=== PATIENT | female | born 1975 | race Caucasian/White ===

== ENCOUNTER 2017-04-30 17:55 | Emergency (ER) | payer BC ==
[2017-04-30 18:05] VITALS: BP 158/89; PULSE 112; RESP 16; TEMP 98.1; O2SAT 94
[2017-04-30] MEDS ORDERED: TDAP ADULT 0.5 ML INJ (BOOSTRIX) IM ONE (18:25)
[2017-04-30] MEDS ORDERED: LET GEL TOPICAL 1 EA SYR TP ONE (18:25)
--- NOTE | 2017-04-30 18:25 | EDPHY ---
H & P Stated Complaint: head lac Time Seen by Provider: 04/30/17 18:24 HPI/ROS: HPI: This is a 41-year-old female presents with Chief Complaint: Head laceration Location: Right occipital Quality: Laceration Duration: Prior to arrival Signs and Symptoms: No LOC, + bleeding, no radiation, no numbness, no weakness , no tingling, no dizziness, no decreased range of motion, no swelling, + pain Timing: Acute Severity: [id number] Context: Patient has a history of diabetes mellitus, was hiking [place], when she did notice a tree branch and it scraped across the top of her head. She noticed that there was some bleeding and immediate pain. She denies any pain at this time. No headache/LOC/neck pain. Patient is unsure of her last tetanus shot. She applied direct pressure with cessation of bleeding. She is not on any blood thinners. Modifying Factors: Direct pressure Comment: ROS: see HPI Constitutional: No fever, no chills, no weight loss Eyes: No blurred vision Respiratory: No shortness of breath, no cough Cardiovascular: No chest pain Gastrointestinal: No nausea, no vomiting no diarrhea Genitourinary: No dysuria Extremities: No myalgias Neurologic: No weakness, no numbness Skin: No rashes Hematologic: No bruising, no bleeding MEDICAL/SURGICAL/SOCIAL HISTORY: Medical/surgical history: diabetes, medullary sponge kidney, kidney stones, lithotripsy x 3, viral meningitis Social history: with children CONSTITUTIONAL: Obese white female, awake and alert, no obvious distress HEENT: 1.5 cm superficial linear laceration on the right occipital scalp, no active bleeding and normocephalic, PERRL, EOMI. no globe entrapment, no raccoon eyes. no Kamara signs.Tympanic membranes clear. No tympanic membrane rupture. Nares patent; no septal hematoma. Oropharynx clear, no exudate and moist pink mucosa. No malocclusion. no dental trauma. Airway patent. No lymphadenopathy. NECK: supple, no midline tenderness, flexion 45 degrees, extension 45 degrees, right and left lateral flexion 45 degrees. No meningismus. Cardiovascular: Normal S1/S2, regular rate, regular rhythm, without murmur rub or gallop. PULMONARY/CHEST: Symmetrical and nontender. no crepitus. Clear to auscultation bilaterally. Good air movement. No accessory muscle usage. ABDOMEN: Soft, nondistended, nontender, no ecchymosis, no rebound, no guarding , no peritoneal signs, no masses or organomegaly. No CVAT. PELVIC: no pain with rocking; bilateral hips flexion 125 degrees, extension 30 degrees, with no pain internal rotation and no pain external rotation. BACK: No midline tenderness, no paraspinous spasm, deep tendon reflexes 2/2, no pain with straight leg raise EXTREMITIES: 2/2 pulses, no deformities, no clubbing, no cyanosis or edema. NEUROLOGICAL: no focal neuro deficits. GCS 15. SKIN: Warm and dry, no erythema. no rash. Good capillary refill. Source: Patient Exam Limitations: No limitations - Personal History LMP (Females 10-55): 8-14 Days Ago Current Tetanus/Diphtheria Vaccine: Unsure Current Tetanus Diphtheria and Acellular Pertussis (TDAP): Unsure - Medical/Surgical History Hx Asthma: No Hx Chronic Respiratory Disease: No Hx Diabetes: Yes Hx Cardiac Disease: No Hx Renal Disease: Yes Hx Cirrhosis: No Hx Alcoholism: No Hx HIV/AIDS: No Hx Splenectomy or Spleen Trauma: No Other PMH: diabetes, medullery sponge kidney, kidney stones, lithotripsy x 3, viral meningitis, - Social History Smoking Status: Never smoked Constitutional: Initial Vital Signs Temperature (C) 36.7 C 04/30/17 18:01 Heart Rate 112 H 04/30/17 18:01 Respiratory Rate 16 04/30/17 18:01 Blood Pressure 158/89 H 04/30/17 18:01 O2 Sat (%) 94 04/30/17 18:01 O2 Delivery Mode Room Air Allergies/Adverse Reactions: No Known Allergies Allergy (Unverified 04/30/17 17:59) Home Medications: Medication Instructions Recorded Chlorthalidone 04/30/17 Citalopram 04/30/17 Fenofibrate 04/30/17 Januvia 50 mg 04/30/17 Wellbutrin Sr 04/30/17 Medical Decision Making Procedures: Procedure: Laceration repair. Verbal consent was obtained from the patient. The1.5 cm superficial linear laceration on the right occipital scalp was anesthetized in the usual fashion using let topical gel 3 mL to 1% lidocaine with epinephrine. The wound was irrigated, draped and explored to its base with a gloved finger. There were no deep structures involved. No foreign bodies were identified identified. The wound was repaired with 3 nahomy. Good hemostasis achieved and patient tolerated procedure well. Bacitracin and clean sterile dressing placed. The procedure was performed by myself. ED Course/Re-evaluation: wound care and laceration repair ordered Tetanus booster given No signs of neurovascular compromise/tenting of skin/compartment syndrome/ extremities and joints examined above and below area of concern and are neurovascularly intact/LOC. 3 Nahomy used to close wound. This patient was seen under the supervision of my secondary supervising physician. I evaluated care for this patient independently. Discussed this patient with Dr. Dong who did not see the patient. Differential Diagnosis: Differential diagnosis includes but is not limited to concussion, laceration, abrasion, contusion, hematoma. - Data Points Medications Given: Discontinued Medications Diphtheria/Tetanus/Acell Pertussis (Boostrix) 0.5 ml IM .ONCE ONE Stop: 04/30/17 18:26 Last Admin: 04/30/17 18:46 Dose: Not Given Tetracaine/Epinephrine/Lidocaine (Let Gel Topical) 1 ea TP EDNOW ONE Stop: 04/30/17 18:26 Last Admin: 04/30/17 18:46 Dose: Not Given Departure - Departure Disposition: Home, Routine, Self-Care Clinical Impression: Occipital scalp laceration Qualifiers: Encounter type: initial encounter Qualified Code(s): S01.01XA - Laceration without foreign body of scalp, initial encounter Condition: Good Instructions: Staple Care (ED), Facial Laceration (ED) Additional Instructions: Keep the area dry for 48 hours. After 48 hours, wash the site daily with mild soap and water; then pat dry; apply topical antibiotic ointment daily. Take Tylenol 650 mg every 4 hours and/or Ibuprofen 600 mg every 8 hours with food as needed for pain. Apply ice for 30 minutes at a time; 2-3 times per day for the next 1-2 days. Please return to the emergency room in 5 days to have your nahomy removed. Referrals: CASEY QUINN [Other] - As per Instructions
== END 2017-04-30 19:09 | disposition home or self-care (01) ==
PROC: 0HQ0XZZ Repair Scalp Skin, External Approach (ICD-10-PCS; principal; 2017-04-30)
DX: S01.01XA Laceration without foreign body of scalp, initial encounter (principal); W22.8XXA Striking against or struck by other objects, initial encounter; Y99.8 Other external cause status; Y93.89 Activity, other specified; E11.9 Type 2 diabetes mellitus without complications